=== PATIENT | female | born 1980 | race Caucasian/White ===

== ENCOUNTER 2017-01-05 08:00 | Day surgery (SDC) | payer OTHER ==
[~2017-01-05] VITALS: Ht 167.6 cm; Wt 56.0 kg
[~2017-01-05 08:00] MED LIST: AMBIEN10 MG PO; YAZ 28 TABLET1 EACH PO; ZOLOFT50 MG PO
[2017-01-05 09:08] VITALS: BP 113/74
[2017-01-05] MEDS ORDERED: IBUPROFEN800 MG PO (10:20)
[2017-01-05 11:05] VITALS: BP 98/61
[2017-01-05 11:58] VITALS: BP 108/65
== END 2017-01-05 12:04 | disposition home or self-care (01) ==
LOC: SDC 08:00
PROC: 0UBC7ZX Excision of Cervix, Via Natural or Artificial Opening, Diagnostic (ICD-10-PCS; principal; 2017-01-05)
DX: N87.9 Dysplasia of cervix uteri, unspecified (principal); F41.8 Other specified anxiety disorders; B97.7 Papillomavirus as the cause of diseases classified elsewhere; F17.210 Nicotine dependence, cigarettes, uncomplicated; Z83.3 Family history of diabetes mellitus; Z82.49 Family history of ischemic heart disease and other diseases of the circulatory system
CPT/HCPCS: 88305; 88307; J0131; J1100; J1885; J2250; J3010